=== PATIENT | female | born 1975 | race Caucasian/White ===

== ENCOUNTER 2024-11-17 13:41 | Emergency (ER) | payer OTHER, SELFPAY ==
[2024-11-17 14:00] VITALS: BP 129/87; PULSE 89; RESP 16; TEMP 36.7; O2SAT 98; BMI 32.1
--- NOTE | 2024-11-17 14:12 | DI.RAD.S_ITS ---
PROCEDURE: XR HAND LT MIN 3V INDICATIONS: door smashed hand/pain, left 5th finger TECHNIQUE: 3 views of the hand(s) acquired. COMPARISON: None. FINDINGS: Bones: Slightly comminuted fracture involving 5th distal phalangeal tuft with minimal distal displacement. No other fracture or dislocation. Carpal bones are normally aligned. No suspicious bony lesions. Soft tissues: Soft tissue swelling surrounding 5th digit is seen. No suspicious soft tissue calcifications. IMPRESSION: Acute slightly comminuted and displaced 5th distal phalangeal tuft fracture with surrounding soft tissue swelling. Dictated by: Feliz Martino M.D. on 11/17/2024 at 14:41 Approved by: Feliz Martino M.D. on 11/17/2024 at 14:54
[2024-11-17] MEDS: LIDOCAINE 1% 20 ML INJ (15:53)
[2024-11-17 17:52] VITALS: BP 125/86; PULSE 87; RESP 16; O2SAT 99
--- NOTE | 2024-11-17 19:06 | ED_ITS ---
HPI - Extremity Injury (Upper) <Giancarlo Laurent PA-C - Last Filed: 11/17/24 19:21> General Chief Complaint: Extremity Injury, Upper Stated Complaint: Dropped wooden door on left hand Time Seen by Provider: 11/17/24 14:28 Source: patient Mode of arrival: Ambulatory History of Present Illness HPI narrative: 49-year-old male presents to the ED status post a left pinky finger crush injury sustained at work just prior to arrival. Patient was working on a well, when the wind sarahi caused a trapdoor to fall on the tip of his left pinky finger. Patient endorses pain at the site of the injury. Patient denies numbness, tingling, weakness. Tetanus is up-to-date. Full range of motion of the finger. Related Data Previous Rx's Medication Instructions Recorded cephalexin 500 mg capsule 500 mg PO QID 7 days #28 caps 11/17/24 Allergies Allergy/AdvReac Type Severity Reaction Status Date / Time No Known Drug Allergies Allergy Verified 11/17/24 13:59 Review of Systems <Giancarlo Laurent PA-C - Last Filed: 11/17/24 19:21> Constitutional Constitutional: Denies chills, Denies fatigue, Denies fever(s), Denies frequent falls, Denies lethargy and Denies weakness Eyes Eyes: Denies change in vision, Denies eye discharge, Denies irritation and Denies loss of vision ENT Ears, Nose, Mouth, and Throat: Denies change in voice, Denies dizziness, Denies neck pain, Denies sore throat and Denies throat swelling Cardiovascular Cardiovascular: Denies chest pain, Denies irregular heart rhythm, Denies lightheadedness, Denies palpitations, Denies dyspnea, Denies dyspnea on exertion and Denies orthopnea Respiratory Respiratory: Denies cough, Denies dyspnea, Denies dyspnea on exertion and Denies wheezing Gastrointestinal Gastrointestinal: Denies abdominal pain, Denies change in bowel habits, Denies diarrhea, Denies nausea and Denies vomiting Musculoskeletal Musculoskeletal: Denies neck pain and Denies numbness Comments: Left pinky finger tip injury, pain, swelling, bruising Integumentary/Breasts Skin/Breast: Denies pruritus, Denies erythema, Denies rash and Reports wounds Neurologic Neurologic: Denies behavioral changes, Denies confusion, Denies dizziness, Denies frequent falls, Denies loss of vision, Denies numbness and Denies weakness Psychiatric Psychiatric: Denies anxiety, Denies behavioral changes, Denies confusion, Denies depression, Denies homicidal ideation and Denies suicidal ideation Endocrine Endocrine: Denies fatigue, Denies flushing and Denies palpitations Hematologic/Lymphatic Hematologic/Lymphatic: Denies easy bruising Allergic/Immunologic Allergic/Immunologic: Denies urticaria, Denies throat swelling and Denies wheezing Patient History <Giancarlo Laurent PA-C - Last Filed: 11/17/24 19:21> Social History Smoking Status: Never smoker Smoking Status: Never smoker Exam <Giancarlo Laurent PA-C - Last Filed: 11/17/24 19:21> Narrative Exam Narrative: Const General:?cooperative, healthy appearing and comfortable [facility] Head:?normal to inspection Ears:?hearing grossly normal bilaterally Nose:?external nose normal Face and sinus:?normal facial exam and sinuses nontender Mouth:?oral mucosae normal Throat:?posterior oropharynx normal Eyes General:?appearance normal, both eyes and all related structures Neck Neck:?normal visual inspection and no lymphadenopathy noted Resp Effort & Inspection:?normal respiratory effort Auscultation:?clear to auscultation bilaterally Cardio Rate:?regular rate Rhythm:?regular rhythm Musculoskeletal/integumentary There is swelling, bruising, tenderness to palpation of the tip of the left pinky finger. There is also some oozing from a small, linear laceration at the tip of the nail. Patient is able to move the finger normally. Neurovascularly intact. Neuro General:?patient alert, patient awake and patient oriented x3 Initial Vital Signs Initial Vital Signs: Vital Signs Temperature 98.1 F 11/17/24 14:00 Pulse Rate 89 11/17/24 14:00 Respiratory Rate 16 11/17/24 14:00 Blood Pressure 129/87 11/17/24 14:00 Pulse Oximetry 98 11/17/24 14:00 Oxygen Delivery Method Room Air 11/17/24 14:00 <Laquita De La Torre DO - Last Filed: 11/22/24 07:41> Initial Vital Signs Initial Vital Signs: Vital Signs Temperature 98.1 F 11/17/24 14:00 Pulse Rate 89 11/17/24 14:00 Respiratory Rate 16 11/17/24 14:00 Blood Pressure 129/87 11/17/24 14:00 Pulse Oximetry 98 11/17/24 14:00 Oxygen Delivery Method Room Air 11/17/24 14:00 Procedures <Giancarlo Laurent PA-C - Last Filed: 11/17/24 19:21> Laceration Repair Laceration 1: Site: hand Side (If applicable): left Size (cm): 0.5 Description: linear Depth: simple, single layer Local Anesthetic: lidocaine 1% Amount of anesthesia used (mL): 4 (digital block) Pre-repair: wound explored, irrigated extensively and deep structures intact Skin layer closed with: nylon Skin layer suture size: 4-0 Number of sutures: 2 Technique: simple, interrupted Course <Giancarlo Laurent PA-C - Last Filed: 11/17/24 19:21> Orders Ordered: Discontinued Medications Lidocaine HCl (Lidocaine 1% 20 Ml) 20 ml INJ INTRA-OP ONE Stop: 11/17/24 15:44 Last Admin: 11/17/24 15:53 Dose: 20 ml Documented By: [email or web address] Vital Signs Vital signs: Vital Signs - 8 hr 11/17/24 14:00 11/17/24 17:52 Temperature 98.1 F Pulse Rate 89 87 Respiratory Rate 16 16 Blood Pressure 129/87 125/86 Pulse Oximetry 98 99 Oxygen Delivery Method Room Air Room Air <Laquita De La Torre DO - Last Filed: 11/22/24 07:41> Orders Ordered: Discontinued Medications Lidocaine HCl (Lidocaine 1% 20 Ml) 20 ml INJ INTRA-OP ONE Stop: 11/17/24 15:44 Last Admin: 11/17/24 15:53 Dose: 20 ml Documented By: [email or web address] Vital Signs Vital signs: Vital Signs - 8 hr 11/17/24 14:00 11/17/24 17:52 Temperature 98.1 F Pulse Rate 89 87 Respiratory Rate 16 16 Blood Pressure 129/87 125/86 Pulse Oximetry 98 99 Oxygen Delivery Method Room Air Room Air MDM - Extremity Injury (Upper) <Giancarlo Laurent PA-C - Last Filed: 11/17/24 19:21> MDM Narrative Medical decision making narrative: 49-year-old male presents to the ED status post a left pinky finger crush injury sustained at work just prior to arrival. X-ray was obtained which shows a acute slightly comminuted and displaced 5th distal phalangeal tuft fracture with surrounding soft tissue swelling. There is also a laceration to the tip of the fingernail. Finger numbed with a digital block. Laceration was repaired with 2 sutures. Finger was splinted. Suture removal, wound care, signs of infection discussed with patient. Antibiotics prescribed. Recommend follow-up with ortho. ED return precautions discussed with patient. Patient verbalized understanding. Medical records reviewed: Yes Discharge Plan Departure Patient Disposition: Home Clinical Impression: Open fracture of tuft of distal phalanx of finger Instructions: DI for Finger Fracture Activity Restrictions/Additional Instructions: You were evaluated in the ED today for a finger injury. You have a laceration on your left pinky finger as well as a fracture to the tip of the finger. Repaired with 2 sutures which will need to be removed in 7-10 days. You may return to the ED, go to your PCP's office, or a walk-in clinic for suture removal. Your finger has been fitted in a splint for proper healing. Wound clean and dry for the 1st 24 hours, following which you may gently wash with soap and water. Please do not give wet dressings on for any length of time. Please keep the injury bandaged while it heals. You have been prescribed a antibiotic. Please watch for signs of infection including worsening redness, warmth, pain, discharge, swelling. Return to the ED if you note any signs of infection. Prescriptions: New cephalexin 500 mg capsule 500 mg PO QID 7 Days Qty: 28 0RF Stand Alone Forms: Patient Portal/API/Survey ED Sign-out <Laquita De La Torre DO - Last Filed: 11/22/24 07:41> Cosign ED Attending Melisa Attestation: I was immediately available in the department for consultation.
== END 2024-11-17 17:54 | disposition home or self-care (01) ==
PROVIDERS: Emergency Provider Student in an Organized Health Care Education/Training Program
DX: S62.637A Displaced fracture of distal phalanx of left little finger, initial encounter for closed fracture (principal); W23.0XXA Caught, crushed, jammed, or pinched between moving objects, initial encounter
CPT/HCPCS: 12001; 73130; 99283